=== PATIENT | male | born 1945 | race Caucasian/White ===

== ENCOUNTER → 2016-08-02 | Outpatient (CLI) | payer MEDICARE, BC ==
[~2016-08-02] MED LIST: AMLO1TAB84 PO; ATOR20TA9 PO; BUSP15TA PO; CLON0.5T20 PO; HYDR-3144 PO; LEVOTH; OXYC60TA8 PO; SERT100T PO; levothyroxine
== END | disposition home or self-care (01) ==
LOC: CFH 10:30
PROVIDERS: ATTEND Pain Medicine Interventional Pain Medicine
DX: G43.809 Other migraine, not intractable, without status migrainosus (principal); J34.2 Deviated nasal septum
CPT/HCPCS: 70450; 70486

== ENCOUNTER → 2017-01-23 | Outpatient (CLI) | payer MEDICARE, BC ==
[~2017-01-23] MED LIST changes: -HYDR-3144 PO; +HYDR-3245 PO
== END | disposition home or self-care (01) ==
LOC: CFH 10:09
PROVIDERS: ATTEND Surgery
DX: E04.2 Nontoxic multinodular goiter (principal); D44.0 Neoplasm of uncertain behavior of thyroid gland
CPT/HCPCS: 76536

== ENCOUNTER 2017-07-06 16:20 | Inpatient (IN) | payer MEDICARE, BC ==
[~2017-07-06] VITALS: Ht 177.8 cm; Wt 95.1 kg
[2017-07-06 16:53] LABS: BASOPHILS # (AUTO) 0.15 x10^3/uL (0-0.1); BASOPHILS % (AUTO) 1 % (0-1); EOSINOPHILS # (AUTO) 0.28 x10^3/uL (0-0.4); EOSINOPHILS % (AUTO) 2 % (1-7); LYMPHOCYTES # (AUTO) 3.73 x10^3/uL (1-3.4); LYMPHOCYTES % (AUTO) 31 % (22-44); MD NO; MEAN CORPUSCULAR HEMOGLOBIN 29.4 pg (27.5-34.5); MEAN CORPUSCULAR VOLUME 86.6 fL (81-97); MEAN PLATELET VOLUME 7.3 fL (7.4-10.4); MONOCYTES # (AUTO) 0.85 x10^3/uL (0.2-0.8); MONOCYTES % (AUTO) 7 % (2-9); NEUTROPHILS # (AUTO) 7.17 x10^3/uL (1.8-6.8); NEUTROPHILS % (AUTO) 59 % (42-75); PLATELET COUNT 450 x10^3/uL (130-400); RED BLOOD COUNT 5.23 x10^6/uL (4.38-5.82); RED CELL DISTRIBUTION WIDTH 15.6 % (9.4-14.8)
[2017-07-06 17:05] LABS: ALANINE AMINOTRANSFERASE 57 U/L (12-78); ALBUMIN 4.4 g/dL (3.4-5.0); ANION GAP 7 mmol/L (5-15); CALCIUM 12.1 mg/dL (8.5-10.1); CHLORIDE 101 mmol/L (98-107); CREATININE 2.36 mg/dL (0.7-1.3)
[2017-07-06 17:08] LABS: ALKALINE PHOSPHATASE 51 U/L (45-117); BILIRUBIN,TOTAL 0.3 mg/dL (0.2-1.0); TOTAL PROTEIN 8.5 g/dL (6.4-8.2)
[2017-07-06] MEDS ORDERED: ARIP15TA3 PO (17:10)
[2017-07-06] MEDS ORDERED: OMEP-110 PO (17:10)
[2017-07-06] MEDS ORDERED: FURO40TA6 PO (17:10)
[2017-07-06] MEDS ORDERED: GABA300C10 PO (17:10)
[2017-07-06] MEDS ORDERED: SODIUM CHLORIDE 0.9% 1,000 ML IV ONE ×2 (18:06→19:48)
[2017-07-06] MEDS ORDERED: SODIUM CHLORIDE 0.9% 1,000ML IVBOLUS ONE (18:30)
[2017-07-06] MEDS ORDERED: SODIUM CHLORIDE FLUSH 10ML SYR IVF ONE (18:30)
[2017-07-06 19:26] LABS: MICROSCOPIC NOT IND
[2017-07-06 19:31] LABS: CULTURE INDICATED? NO
[2017-07-06] MEDS ORDERED: SODIUM CHLORIDE FLUSH 10ML SYR IVF PRN (20:00)
[2017-07-06 20:56] VITALS: BP 131/65
[2017-07-06] MEDS ORDERED: CLON-364 PO (21:20)
[2017-07-06] MEDS ORDERED: TOPI50TA35 PO (21:23)
[2017-07-06] MEDS ORDERED: hydrALAzine 20 MG/ML, 1ML IVPush PRN (23:00)
[2017-07-06] MEDS ORDERED: ACETAMINOPHEN 325 MG TABLET PO PRN (23:00)
[2017-07-06] MEDS ORDERED: morphine SULFATE 10 MG/ML, 1ML IVPush PRN (23:00)
[2017-07-06] MEDS ORDERED: ONDANSETRON 2MG/ML, 2ML IVPush PRN (23:00)
[2017-07-06] MEDS ORDERED: OXYcodone IR 5MG TABLET PO PRN (23:00)
[2017-07-06] MEDS ORDERED: LABETALOL 5MG/ML, 20ML IVPush PRN (23:00)
[2017-07-06] MEDS ORDERED: BISACODYL 10 MG SUPP PR PRN (23:00)
[2017-07-06] MEDS ORDERED: POLYETHYLENE GLYCOL 17 GM PACKET PO PRN (23:00)
[2017-07-06 23:30] LABS: FREE T4 (FREE THYROXINE) 1.03 ng/dL (0.76-1.46); HEMOGLOBIN A1C 8.2 % (4.2-6.3); PSA SCREEN 2.74 ng/mL (0.00-4.00); THYROID STIMULATING HORMONE 1.22 mIU/L (0.358-3.740)
[2017-07-06] MEDS: SODIUM CHLORIDE 0.9% 1,000 ML IV SCH (23:38)
[2017-07-06] MEDS: HEPARIN 5,000 UNITS/ML, 1ML SQ SCH (23:39)
[2017-07-07 01:24] VITALS: BP 112/68
[2017-07-07 05:06] LABS: BASOPHILS # (AUTO) 0.06 x10^3/uL (0-0.1); BASOPHILS % (AUTO) 1 % (0-1); EOSINOPHILS # (AUTO) 0.36 x10^3/uL (0-0.4); EOSINOPHILS % (AUTO) 4 % (1-7); LYMPHOCYTES # (AUTO) 2.95 x10^3/uL (1-3.4); LYMPHOCYTES % (AUTO) 30 % (22-44); MD NO; MEAN CORPUSCULAR HEMOGLOBIN 29.4 pg (27.5-34.5); MEAN CORPUSCULAR HGB CONC 33.7 g/dL (33.2-36.2); MEAN CORPUSCULAR VOLUME 87.2 fL (81-97); MEAN PLATELET VOLUME 7.4 fL (7.4-10.4); MONOCYTES # (AUTO) 0.83 x10^3/uL (0.2-0.8); MONOCYTES % (AUTO) 8 % (2-9); NEUTROPHILS # (AUTO) 5.68 x10^3/uL (1.8-6.8); NEUTROPHILS % (AUTO) 58 % (42-75); PLATELET COUNT 419 x10^3/uL (130-400); RED BLOOD COUNT 4.97 x10^6/uL (4.38-5.82); RED CELL DISTRIBUTION WIDTH 15.6 % (9.4-14.8)
[2017-07-07 05:17] LABS: CHLORIDE 104 mmol/L (98-107)
[2017-07-07 05:29] LABS: ALANINE AMINOTRANSFERASE 54 U/L (12-78); ALBUMIN 3.8 g/dL (3.4-5.0); ALKALINE PHOSPHATASE 46 U/L (45-117); ANION GAP 9 mmol/L (5-15); BILIRUBIN,TOTAL 0.3 mg/dL (0.2-1.0); CALCIUM 10.3 mg/dL (8.5-10.1); CHOL/HDL RATIO 4.4; CHOLESTEROL, TOTAL 174 mg/dL (140-239); CREATININE 2.02 mg/dL (0.7-1.3); HDL CHOL % 23 % (26-37); HDL CHOLESTEROL (DIRECT) 40 mg/dL (40-60); TOTAL PROTEIN 7.4 g/dL (6.4-8.2); TRIGLYCERIDES 462 mg/dL (50-200)
[2017-07-07] MEDS: SODIUM CHLORIDE 0.9% 1,000 ML IV SCH ×4 (05:42→21:32)
[2017-07-07 07:22] VITALS: BP 110/69
[2017-07-07] MEDS: AMLODIPINE 5 MG TABLET PO SCH (07:27)
[2017-07-07] MEDS: ARIPIPRAZOLE 15 MG TABLET PO SCH (07:27)
[2017-07-07] MEDS: OMEPRAZOLE 20 MG CAPSULE.DR PO SCH ×2 (07:27→21:23)
[2017-07-07] MEDS: TOPIRAMATE 25 MG TABLET PO SCH (07:27)
[2017-07-07] MEDS: HEPARIN 5,000 UNITS/ML, 1ML SQ SCH ×3 (07:28→23:13)
[2017-07-07] MEDS: HYDROcodone/APAP 10/325 MG TABLET PO PRN ×2 (11:30→21:31)
[2017-07-07] MEDS: DOCUSATE 100 MG CAPSULE PO PRN ×2 (11:30→21:31)
[2017-07-07 13:23] VITALS: BP 116/66
[2017-07-07] MEDS: GUAIFENESIN/DM 100-10MG, 5ML UDC PO PRN ×2 (13:23→21:22)
[2017-07-07 19:57] VITALS: BP 110/65
[2017-07-07] MEDS ORDERED: ATORVASTATIN 20 MG TABLET PO SCH (21:00)
[2017-07-07] MEDS ORDERED: GABAPENTIN 300 MG CAPSULE PO SCH (21:00)
[2017-07-08 04:20] VITALS: BP 100/64
[2017-07-08 05:09] LABS: BASOPHILS # (AUTO) 0.04 x10^3/uL (0-0.1); BASOPHILS % (AUTO) 1 % (0-1); EOSINOPHILS # (AUTO) 0.35 x10^3/uL (0-0.4); EOSINOPHILS % (AUTO) 4 % (1-7); LYMPHOCYTES # (AUTO) 2.82 x10^3/uL (1-3.4); LYMPHOCYTES % (AUTO) 33 % (22-44); MD NO; MEAN CORPUSCULAR HEMOGLOBIN 29.9 pg (27.5-34.5); MEAN CORPUSCULAR HGB CONC 34.3 g/dL (33.2-36.2); MEAN CORPUSCULAR VOLUME 87.2 fL (81-97); MEAN PLATELET VOLUME 7.5 fL (7.4-10.4); MONOCYTES # (AUTO) 0.64 x10^3/uL (0.2-0.8); MONOCYTES % (AUTO) 8 % (2-9); NEUTROPHILS # (AUTO) 4.65 x10^3/uL (1.8-6.8); NEUTROPHILS % (AUTO) 55 % (42-75); PLATELET COUNT 371 x10^3/uL (130-400); RED BLOOD COUNT 4.45 x10^6/uL (4.38-5.82); RED CELL DISTRIBUTION WIDTH 15.5 % (9.4-14.8)
[2017-07-08 05:12] LABS: CHLORIDE 112 mmol/L (98-107)
[2017-07-08 05:26] LABS: ANION GAP 7 mmol/L (5-15); CALCIUM 8.8 mg/dL (8.5-10.1)
[2017-07-08 07:00] VITALS: BP 126/77
[2017-07-08] MEDS: HEPARIN 5,000 UNITS/ML, 1ML SQ SCH (07:00)
[2017-07-08] MEDS: TOPIRAMATE 25 MG TABLET PO SCH (09:30)
[2017-07-08] MEDS: OMEPRAZOLE 20 MG CAPSULE.DR PO SCH (09:31)
[2017-07-08] MEDS: ARIPIPRAZOLE 15 MG TABLET PO SCH (09:31)
[2017-07-08] MEDS: AMLODIPINE 5 MG TABLET PO SCH (09:31)
== END 2017-07-08 09:37 | disposition home or self-care (01) | DRG 682 ==
LOC: ED 18:19 → EDIP 20:12 → 3NW 20:32
PROVIDERS: ADMIT Internal Medicine; ATTEND Internal Medicine
DX: N17.0 Acute kidney failure with tubular necrosis (principal); G93.41 Metabolic encephalopathy; E86.0 Dehydration; F20.9 Schizophrenia, unspecified; E78.5 Hyperlipidemia, unspecified; K21.9 Gastro-esophageal reflux disease without esophagitis; D72.829 Elevated white blood cell count, unspecified; F12.90 Cannabis use, unspecified, uncomplicated; G89.29 Other chronic pain; K76.0 Fatty (change of) liver, not elsewhere classified; Z82.0 Family history of epilepsy and other diseases of the nervous system
CPT/HCPCS: 36415; 70450; 70551; 71046; 74176; 80048; 80053; 80061; 81003; 82607; 83036; 83690; 83735; 84439; 84443; 85025; 87040; 93005; 99285; G0103; J1644; J7030

== ENCOUNTER → 2018-01-25 | Outpatient (CLI) | payer MEDICARE, BC ==
[~2018-01-25] MED LIST changes: +ARIP15TA3 PO; +CLON0.5T11 PO; +FURO40TA6 PO; +GABA300C10 PO; +OMEP-110 PO; +TOPI50TA35 PO
== END | disposition home or self-care (01) ==
LOC: CFH 13:25
PROVIDERS: ATTEND Internal Medicine Critical Care Medicine
DX: J47.9 Bronchiectasis, uncomplicated (principal)
CPT/HCPCS: 71250

== ENCOUNTER 2019-09-21 20:15 | Emergency (ER) | payer BC, MEDICARE, OTHER ==
[~2019-09-21] VITALS: Ht 177.8 cm; Wt 74.2 kg
[~2019-09-21 20:15] MED LIST changes: +ARMO150T4 PO; +ATOR20TA37 PO; -ATOR20TA9 PO; +BACL20TA PO; +CLON-364 PO; -CLON0.5T11 PO; +DIPH25CA61 PO; +FENO134C PO; +GLIP5TAB10 PO; +HYDR-826 PO; +HYDR25TA6 PO; +LIOT5TAB11 PO; +NEBI10TA3 PO; +SUMA100T4 PO; +TESTERONE TP; +VALA10007 PO; +oxycodone PO
--- NOTE | 2019-09-21 21:14 | NUR ---
PT TO CT.
--- NOTE | 2019-09-21 21:39 | NUR ---
RESTING ON GURNEY, FALL PRECAUTIONS IN PLACE. CALL LIGHT WITHIN REACH.
[2019-09-21 21:59] VITALS: BP 135/66
== END 2019-09-21 22:02 | disposition home or self-care (01) ==
LOC: ED 21:55
DX: S16.1XXA Strain of muscle, fascia and tendon at neck level, initial encounter (principal); S09.90XA Unspecified injury of head, initial encounter; G43.909 Migraine, unspecified, not intractable, without status migrainosus; G89.29 Other chronic pain; I10 Essential (primary) hypertension; E11.9 Type 2 diabetes mellitus without complications; Y08.89XA Assault by other specified means, initial encounter; Y93.89 Activity, other specified; Y92.69 Other specified industrial and construction area as the place of occurrence of the external cause; Y99.0 Civilian activity done for income or pay
CPT/HCPCS: 70450; 70486; 72125; 99285